=== PATIENT | male | born 1965 | race American Indian/Alaskan Native ===

== ENCOUNTER 2018-05-09 01:58 | Emergency (ER) | payer SELFPAY ==
[2018-05-09 02:06] VITALS: BP 141/90
[2018-05-09] MEDS ORDERED: MOTRIN ONE (04:28)
[2018-05-09] MEDS ORDERED: MOTRIN PO ONE (04:30)
[2018-05-09] MEDS ORDERED: DECADRON IM ONE (05:01)
[2018-05-09] MEDS ORDERED: REGLAN PO ONE (05:03)
[2018-05-09] MEDS ORDERED: BANOPHEN PO ONE (05:03)
--- NOTE | 2018-05-09 05:08 | Emergency Department Report ---
ED ENT HPI - General Chief complaint: Sore Throat Stated complaint: SORE THROAT Time Seen by Provider: 05/09/18 05:01 Source: patient Mode of arrival: Ambulatory Limitations: No Limitations - History of Present Illness Initial comments: Patient is a 52-year-old -[place] male no medical history who presents for throat swelling and burning after steak tonight with wild mushrooms patient denies shortness of breath no chest pain no wheezing no stridor hire a throat swelling itching and burning patient has not taken [id number] Benadryl MD complaint: difficulty swallowing, other Onset/Timin -: hour(s) Location: throat Severity: moderate Severity scale (0 -10): 5 Quality: burning, sharp Consistency: constant Improves with: none Worsens with: swallowing Associated Symptoms: pain with swallowing, sore throat. denies: fever, cough, gum swelling, toothache, tinnitus, hearing loss, discharge from ear, rhinorrhea - Related Data Previous Rx's Medication Instructions Recorded Last Taken Type Dexamethasone [Decadron] 4 mg PO Q12H #4 tablet 05/09/18 Unknown Rx EPINEPHrine [Epipen 2-Antwan] 0.3 mg IJ PRN PRN #1 auto.injct 05/09/18 Unknown Rx Metoclopramide [Reglan] 10 mg PO TID #30 tab 05/09/18 Unknown Rx diphenhydrAMINE [Benadryl CAP] 25 mg PO Q6HR PRN #30 capsule 05/09/18 Unknown Rx Allergies Allergy/AdvReac Type Severity Reaction Status Date / Time No Known Allergies Allergy Verified 05/09/18 02:16 ED Dental HPI - General Chief complaint: Sore Throat Stated complaint: SORE THROAT Time Seen by Provider: 05/09/18 05:01 Source: patient Mode of arrival: Ambulatory Limitations: No Limitations - Related Data Previous Rx's Medication Instructions Recorded Last Taken Type Dexamethasone [Decadron] 4 mg PO Q12H #4 tablet 05/09/18 Unknown Rx EPINEPHrine [Epipen 2-Antwan] 0.3 mg IJ PRN PRN #1 auto.injct 05/09/18 Unknown Rx Metoclopramide [Reglan] 10 mg PO TID #30 tab 05/09/18 Unknown Rx diphenhydrAMINE [Benadryl CAP] 25 mg PO Q6HR PRN #30 capsule 05/09/18 Unknown Rx Allergies Allergy/AdvReac Type Severity Reaction Status Date / Time No Known Allergies Allergy Verified 05/09/18 02:16 ED Review of Systems ROS: Stated complaint: SORE THROAT Other details as noted in HPI Constitutional: no symptoms reported Eyes: denies: eye pain, eye discharge, vision change ENT: throat pain. denies: ear pain Respiratory: denies: cough, shortness of breath, wheezing Cardiovascular: denies: chest pain, palpitations Endocrine: no symptoms reported Gastrointestinal: denies: abdominal pain, nausea, diarrhea Genitourinary: denies: urgency, dysuria Musculoskeletal: denies: back pain, joint swelling, arthralgia Skin: denies: rash, lesions Neurological: denies: headache, weakness, paresthesias Psychiatric: denies: anxiety, depression Hematological/Lymphatic: denies: easy bleeding, easy bruising ED Past Medical Hx - Past Medical History Previous Medical History?: No - Surgical History Additional Surgical History: hernia repair - Social History Smoking Status: Never Smoker Substance Use Type: Alcohol - Medications Home Medications: Home Medications Medication Instructions Recorded Confirmed Last Taken Type Dexamethasone [Decadron] 4 mg PO Q12H #4 tablet 05/09/18 Unknown Rx EPINEPHrine [Epipen 2-Antwan] 0.3 mg IJ PRN PRN #1 auto.injct 05/09/18 Unknown Rx Metoclopramide [Reglan] 10 mg PO TID #30 tab 05/09/18 Unknown Rx diphenhydrAMINE [Benadryl CAP] 25 mg PO Q6HR PRN #30 capsule 05/09/18 Unknown Rx ED Physical Exam - General Limitations: No Limitations General appearance: alert, in no apparent distress - Head Head exam: Present: atraumatic, normocephalic - Eye Eye exam: Present: normal appearance, PERRL, EOMI Pupils: Present: normal accommodation - ENT ENT exam: Present: mucous membranes moist, TM's normal bilaterally, normal external ear exam - Expanded ENT Exam Expanded Mouth exam: Present: muffled voice. Absent: trismus, tongue normal (swelling ) , tongue elevation Teeth exam: Present: normal inspection Throat exam: Positive: tonsillar erythema, tonsillomegaly. Negative: tonsillar exudate, R peritonsillar mass, L peritonsillar mass, other - Neck Neck exam: Present: normal inspection, meningismus. Absent: tenderness - Respiratory Respiratory exam: Present: normal lung sounds bilaterally. Absent: respiratory distress, wheezes, rhonchi, stridor, chest wall tenderness, accessory muscle use - Cardiovascular Cardiovascular Exam: Present: regular rate, normal rhythm. Absent: systolic murmur, diastolic murmur, rubs, gallop - GI/Abdominal GI/Abdominal exam: Present: soft, normal bowel sounds. Absent: distended, tenderness, guarding, rebound, rigid, organomegaly, mass, bruit, pulsatile mass , hernia - Rectal Rectal exam: Present: deferred - Extremities Exam Extremities exam: Present: normal inspection, full ROM - Back Exam Back exam: Present: normal inspection, full ROM. Absent: tenderness - Neurological Exam Neurological exam: Present: alert, oriented X3, CN II-XII intact, normal gait, reflexes normal. Absent: motor sensory deficit - Expanded Neurological Exam Expanded Patient oriented to: Present: person, place, time Speech: Present: fluid speech Cranial nerves: EOM's Intact: Normal, Gag Reflex: Normal, Tongue Deviation: Normal, Nystagmus: Normal, Facial Sensation: Normal, Facial Palsy with Forehead Movement: Normal, Facial Palsy without Forehead Movement: Normal Cerebellar function: Finger to Nose: Normal, Heel to Mann: Normal, Romberg: Normal Upper motor neuron: Angel Neglect: Normal, Pronator Drift: Normal, Babinski Sign : Normal, Sensory Extinction: Normal Sensory exam: Upper Extremity Light Touch: Normal, Upper Extremity Pin Prick: Normal, Upper Extremity Temperature: Normal, UE 2 Point Discrimination: Normal, Lower Extremity Light Touch: Normal, Lower Extremity Pin Prick: Normal, Lower Extremity Temperature: Normal, LE 2 Point Discrimination: Normal Motor strength exam: RUE: 5, LUE: 5, RLE: 5, LLE: 5 DTR: bicep (R): 2+, bicep (L): 2+, tricep (R): 2+, tricep (L): 2+, knee (R): 2+ , knee (L): 2+, ankle (R): 2+, ankle (L): 2+ Best Eye Response (John): (4) open spontaneously Best Motor Response (John): (6) obeys commands Best Verbal Response (John): (5) oriented Corona Total: 15 - Psychiatric Psychiatric exam: Present: normal affect - Skin Skin exam: Present: warm, dry, intact, normal color. Absent: rash, cyanosis, diaphoretic, erythema, urticaria, pallor, ecchymosis ED Course Vital Signs 05/09/18 05/09/18 01:59 02:17 Temperature 98.1 F 98.1 F Pulse Rate 69 62 Respiratory 18 18 Rate Blood Pressure 141/90 141/90 O2 Sat by Pulse 100 100 Oximetry ED Medical Decision Making - Medical Decision Making Symptoms improving his allergic reaction to food source plan DC to home Decadron by mouth 2 more days Benadryl Reglan patient given EpiPen teaching follow-up PCP in 2-3 days return to ED his symptoms worsen patient currently NO 3 ambulatory gait steady shortness of breath no stridor no wheezing uvula remains midline airway patent no exudate no lesions patient verbalizes understanding and agreement with discharge plan will be DC'd to home in stable condition Critical care attestation.: If time is entered above; I have spent that time in minutes in the direct care of this critically ill patient, excluding procedure time. ED Disposition Clinical Impression: Allergic reaction to food Qualifiers: Encounter type: initial encounter Qualified Code(s): T78.1XXA - Other adverse food reactions, not elsewhere classified, initial encounter Disposition: DC-01 TO HOME OR SELFCARE Is pt being admited?: No Does the pt Need Aspirin: No Condition: Good Instructions: Food Allergy (ED), Allergies (ED) Prescriptions: Dexamethasone [Decadron] 4 mg PO Q12H #4 tablet diphenhydrAMINE [Benadryl CAP] 25 mg PO Q6HR PRN #30 capsule PRN Reason: allergies EPINEPHrine [Epipen 2-Antwan] 0.3 mg IJ PRN PRN #1 auto.injct PRN Reason: Allergic Reaction Metoclopramide [Reglan] 10 mg PO TID #30 tab Referrals: PRIMARY CARE,MD [Primary Care Provider] - 3-5 Days Forms: Work/School Release Form(ED) Time of Disposition: 05:15
== END 2018-05-09 05:26 | disposition home or self-care (01) ==
LOC: ED 01:58
DX: T78.1XXA Other adverse food reactions, not elsewhere classified, initial encounter (principal); X58.XXXA Exposure to other specified factors, initial encounter
CPT/HCPCS: 96372; 99282; J1100; Q0163

== ENCOUNTER 2018-12-09 21:51 | Emergency (ER) | payer SELFPAY ==
[2018-12-09] MEDS ORDERED: TYLENOL PO ONE (22:27)
[2018-12-09] MEDS ORDERED: TYLENOL ONE (22:31)
--- NOTE | 2018-12-10 05:38 | Emergency Department Report ---
ED ENT HPI - General Chief complaint: Earache Stated complaint: EAR PAIN Time Seen by Provider: 12/10/18 05:32 Source: patient, family Mode of arrival: Ambulatory Limitations: No Limitations - History of Present Illness Initial comments: Mr. Ceballos is a 53-year-old -[place] male with a history of recurrent AOM he wears hearing aids has been unable to see ENT for the last month complains of bilateral ear pain sinus pain and pressure for the last 4 days low-grade fever 99. 5 subjective at home Is 98.5 triage tonight there is no dizziness, lighth eadedness no nausea vomiting sinus pressure 5/10 exacerbated by position and movement there's been no nausea vomiting no chest pain or shortness of breath low back pain but is currently no headache. MD complaint: ear pain Onset/Timin -: days(s) Location: R ear, L ear Severity: moderate Severity scale (0 -10): 5 Quality: aching Consistency: constant Improves with: rest Worsens with: position, movement Associated Symptoms: fever, tinnitus. denies: discharge from ear - Related Data Previous Rx's Medication Instructions Recorded Last Taken Type Dexamethasone [Decadron] 4 mg PO Q12H #4 tablet 05/09/18 Unknown Rx EPINEPHrine [Epipen 2-Antwan] 0.3 mg IJ PRN PRN #1 auto.injct 05/09/18 Unknown Rx Metoclopramide [Reglan] 10 mg PO TID #30 tab 05/09/18 Unknown Rx diphenhydrAMINE [Benadryl CAP] 25 mg PO Q6HR PRN #30 capsule 05/09/18 Unknown Rx Amoxicillin/Potassium Clav 1 each PO BID 10 Days #20 tablet 12/10/18 Unknown Rx [Augmentin 875-125 Tablet] Dexamethasone [Decadron] 4 mg PO BID #6 tablet 12/10/18 Unknown Rx Ibuprofen 800 mg PO TID PRN #30 tablet 12/10/18 Unknown Rx Oxymetazoline 0.05% [Afrin] 2 spray NS BID PRN 3 Days #1 bottle 12/10/18 Unknown Rx Allergies Allergy/AdvReac Type Severity Reaction Status Date / Time No Known Allergies Allergy Verified 05/09/18 02:16 ED Dental HPI - General Chief complaint: Earache Stated complaint: EAR PAIN Time Seen by Provider: 12/10/18 05:32 Source: patient, family Mode of arrival: Ambulatory Limitations: No Limitations - Related Data Previous Rx's Medication Instructions Recorded Last Taken Type Dexamethasone [Decadron] 4 mg PO Q12H #4 tablet 05/09/18 Unknown Rx EPINEPHrine [Epipen 2-Antwan] 0.3 mg IJ PRN PRN #1 auto.injct 05/09/18 Unknown Rx Metoclopramide [Reglan] 10 mg PO TID #30 tab 05/09/18 Unknown Rx diphenhydrAMINE [Benadryl CAP] 25 mg PO Q6HR PRN #30 capsule 05/09/18 Unknown Rx Amoxicillin/Potassium Clav 1 each PO BID 10 Days #20 tablet 12/10/18 Unknown Rx [Augmentin 875-125 Tablet] Dexamethasone [Decadron] 4 mg PO BID #6 tablet 12/10/18 Unknown Rx Ibuprofen 800 mg PO TID PRN #30 tablet 12/10/18 Unknown Rx Oxymetazoline 0.05% [Afrin] 2 spray NS BID PRN 3 Days #1 bottle 12/10/18 Unknown Rx Allergies Allergy/AdvReac Type Severity Reaction Status Date / Time No Known Allergies Allergy Verified 05/09/18 02:16 ED Review of Systems ROS: Stated complaint: EAR PAIN Other details as noted in HPI Constitutional: denies: chills, fever Eyes: denies: eye pain, eye discharge, vision change ENT: ear pain, congestion. denies: throat pain Respiratory: denies: cough, shortness of breath, wheezing Cardiovascular: denies: chest pain, palpitations Endocrine: no symptoms reported Gastrointestinal: denies: abdominal pain, nausea, diarrhea Genitourinary: denies: urgency, dysuria Musculoskeletal: denies: back pain, joint swelling, arthralgia Skin: denies: rash, lesions Neurological: denies: headache, weakness, numbness, paresthesias, confusion, vertigo Psychiatric: denies: anxiety, depression Hematological/Lymphatic: denies: easy bleeding, easy bruising ED Past Medical Hx - Past Medical History Previous Medical History?: Yes Additional medical history: Chronic Back Pain. Sciatica. Hearing Impaired - Surgical History Past Surgical History?: Yes Additional Surgical History: hernia repair, Neck surgery, Left knee surgery - Social History Smoking Status: Never Smoker Substance Use Type: None - Medications Home Medications: Home Medications Medication Instructions Recorded Confirmed Last Taken Type Dexamethasone [Decadron] 4 mg PO Q12H #4 tablet 05/09/18 Unknown Rx EPINEPHrine [Epipen 2-Antwan] 0.3 mg IJ PRN PRN #1 auto.injct 05/09/18 Unknown Rx Metoclopramide [Reglan] 10 mg PO TID #30 tab 05/09/18 Unknown Rx diphenhydrAMINE [Benadryl CAP] 25 mg PO Q6HR PRN #30 capsule 05/09/18 Unknown Rx Amoxicillin/Potassium Clav 1 each PO BID 10 Days #20 tablet 12/10/18 Unknown Rx [Augmentin 875-125 Tablet] Dexamethasone [Decadron] 4 mg PO BID #6 tablet 12/10/18 Unknown Rx Ibuprofen 800 mg PO TID PRN #30 tablet 12/10/18 Unknown Rx Oxymetazoline 0.05% [Afrin] 2 spray NS BID PRN 3 Days #1 bottle 12/10/18 Unknown Rx ED Physical Exam - General Limitations: No Limitations General appearance: alert, in no apparent distress - Head Head exam: Present: atraumatic, normocephalic - Eye Eye exam: Present: normal appearance, PERRL, EOMI - ENT ENT exam: Present: normal orophraynx, mucous membranes moist, normal external ear exam, other (bilat frontal and maxillary sinus pain to palpation no swelling on erythema noted yellow clear rhinorrhea ) - Expanded ENT Exam Expanded Ear exam: Present: normal external inspection TM/Canal exam: Erythema: Right TM, Left TM, Effusion: Right TM, Canal Tenderness: Right TM, Left TM Mouth exam: Present: normal external inspection. Absent: trismus Teeth exam: Present: normal inspection Throat exam: Positive: tonsillar erythema, tonsillomegaly, other (uvula midline no lesions no exudate ). Negative: tonsillar exudate, R peritonsillar mass, L peritonsillar mass - Neck Neck exam: Present: normal inspection, full ROM. Absent: tenderness, lymphad enopathy, thyromegaly - Expanded Neck Exam Expanded Neck exam: Absent: tenderness, midline deformity, anterior neck swelling, thyroid mass, carotid bruit, tracheal deviation - Respiratory Respiratory exam: Present: normal lung sounds bilaterally. Absent: respiratory distress, wheezes, stridor, chest wall tenderness - Cardiovascular Cardiovascular Exam: Present: regular rate, normal rhythm, normal heart sounds. Absent: systolic murmur, diastolic murmur, rubs, gallop - GI/Abdominal GI/Abdominal exam: Present: soft, normal bowel sounds. Absent: bruit, hernia - Rectal Rectal exam: Present: deferred - Extremities Exam Extremities exam: Present: normal inspection, full ROM. Absent: tenderness - Back Exam Back exam: Present: normal inspection, full ROM. Absent: tenderness - Neurological Exam Neurological exam: Present: alert, oriented X3, CN II-XII intact, normal gait, reflexes normal. Absent: motor sensory deficit - Psychiatric Psychiatric exam: Present: normal affect, normal mood - Skin Skin exam: Present: warm, dry, intact, normal color. Absent: rash ED Course Vital Signs 12/09/18 22:22 Temperature 97.5 F L Pulse Rate 99 H Respiratory 18 Rate Blood Pressure 97/78 O2 Sat by Pulse 100 Oximetry ED Medical Decision Making - Medical Decision Making pt with bilat TM erythema pain canal swelling no mastoid tenderness no vertigo no n/v dizziness or light headedness there is related sinus pain pressure plan, decadron, augmentin, ibuprofen, afrin nasal spray x 3 days pt will follow up with ENT in 2-3 days pt verbalized agreement and understanding of same. Critical care attestation.: If time is entered above; I have spent that time in minutes in the direct care of this critically ill patient, excluding procedure time. ED Disposition Clinical Impression: Sinusitis Qualifiers: Sinusitis location: frontal Chronicity: acute Recurrence: recurrent Qualified Code(s): J01.11 - Acute recurrent frontal sinusitis AOM (acute otitis media) Qualifiers: Otitis media type: serous Laterality: bilateral Recurrence: recurrent Qualified Code(s): H65.06 - Acute serous otitis media, recurrent, bilateral Disposition: TO HOME OR SELFCARE Is pt being admited?: No Does the pt Need Aspirin: No Condition: Stable Instructions: Sinusitis (ED), Otitis Media (ED) Prescriptions: Amoxicillin/Potassium Clav [Augmentin 875-125 Tablet] 1 each PO BID 10 Days #20 tablet Dexamethasone [Decadron] 4 mg PO BID #6 tablet Ibuprofen 800 mg PO TID PRN #30 tablet PRN Reason: pain fever Oxymetazoline 0.05% [Afrin] 2 spray NS BID PRN 3 Days #1 bottle PRN Reason: sinus congestion Referrals: LYDIA HILL MD [Staff Physician] - 3-5 Days Forms: Work/School Release Form(ED) Time of Disposition: 05:47
[2018-12-10 06:00] VITALS: BP 110/76
== END 2018-12-10 06:01 | disposition home or self-care (01) ==
LOC: ED 21:51
DX: J01.11 Acute recurrent frontal sinusitis (principal); H65.06 Acute serous otitis media, recurrent, bilateral; M54.9 Dorsalgia, unspecified; G89.29 Other chronic pain
CPT/HCPCS: 99282